=== PATIENT | male | born 1960 | race Caucasian/White ===

== ENCOUNTER 2017-03-05 13:55 | Emergency (ER) | payer BC, OTHER ==
[~2017-03-05] VITALS: Ht 185.4 cm; Wt 92.4 kg
[~2017-03-05 13:55] MED LIST: ASPI81TA21 PO; CALC-51 PO; CHOL100010 PO; CLR10 PO; MULT-506 PO; OMEGCAP2 PO
[2017-03-05 13:59] VITALS: TEMP 36.9; Ht 185.4 cm; Wt 92.4 kg
--- NOTE | 2017-03-05 14:24 | DIAGNOSTIC IMAGING REPORT ---
RIGHT THIRD FINGER 3 VIEWS CLINICAL HISTORY: Third finger injury/dislocation. FINDINGS: 3 views of the right third finger are obtained. No prior studies are available for comparison at the time of dictation. The skeletal structures are well mineralized. No fracture or dislocation is seen in the right third finger. The third metacarpophalangeal and interphalangeal joints are preserved. Soft tissue swelling is identified, greatest overlying the proximal interphalangeal joint. IMPRESSION: 1. No fracture or dislocation is identified in the right third finger. 2. Soft tissue edema is noted, greatest overlying the proximal interphalangeal joint. Electronically signed by: James Sanchez M.D. 03/05/2017 2:23 PM Dictated Date/Time: 03/05/2017 2:21 PM
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
[2017-03-05] MEDS ORDERED: CALC-51 PO (14:45)
[2017-03-05] MEDS ORDERED: FLUT0.15 NAE (14:45)
[2017-03-05] MEDS ORDERED: CHOL100010 PO (14:45)
[2017-03-05 14:53] VITALS: BP 143/76; PULSE 73; O2SAT 100
== END 2017-03-05 14:55 | disposition home or self-care (01) ==
LOC: C.EDB 13:56 → C.EDD 14:55
DX: S63.232A Subluxation of proximal interphalangeal joint of right middle finger, initial encounter (principal); Z79.82 Long term (current) use of aspirin; Z79.899 Other long term (current) drug therapy; V18.0XXA Pedal cycle driver injured in noncollision transport accident in nontraffic accident, initial encounter